=== PATIENT | male | born 1995 | race Caucasian/White ===

== ENCOUNTER 2022-07-20 08:55 | Emergency (ER) | payer SELFPAY ==
[2022-07-20 11:00] LABS: #Basophils 0.1 10x3/uL (0.0-0.2); #Eosinphils 0.3 10x3/uL (0.0-0.5); #Monocytes 1.4 10x3/uL (0.0-1.1); #Neutrophils 9.8 10x3/uL (1.5-8.4); %Basophils 0.8 % (0.0-2.0); %Eosinophils 2.4 % (0.0-6.0); %Lymphocytes 11.2 % (18.0-47.0); %Monocytes 10.4 % (0.0-10.0); %Neutrophils 74.5 % (40.0-75.0); Hemoglobin 12.4 g/dL (13.5-17.5); Mean Corpuscular HGB CONC 32.4 g/dL (32.0-36.0); Mean Corpuscular Hemoglobin 28.4 pg (27.0-33.0); Mean Corpuscular Volume 87.8 fl (81.2-95.1); Mean Platelet Volume 8.9 fl (7.4-10.4); Platelet Count 533 10x3/uL (150-450); RBC Distribution Width 14.8 % (11.5-14.5); Red Blood Cell (RBC) Count 4.36 10x6/uL (4.32-5.72); White Blood Cell (WBC) Count 13.1 10x3/uL (3.5-10.5)
[2022-07-20 11:14] LABS: ALT (SGPT) 80 U/L (8-55); AST (SGOT) 48 U/L (5-34); Albumin 3.5 g/dL (3.5-5.0); Alkaline Phosphatase 447 U/L (40-110); Anion Gap 11 mmol/L (10-20); BUN (Urea Nitrogen) 9 mg/dL (8.9-20.6); Bilirubin, Total 0.9 mg/dL (0.2-1.2); Calc. Creatinine Clearance 0 mL/min (70-130); Calcium 9.6 mg/dL (7.8-10.44); Carbon Dioxide 27 mmol/L (22-29); Chloride 99 mmol/L (98-107); Estimated GFR 124; Globulin 4.1 g/dL (2.4-3.5); Glucose 95 mg/dL (70-105); Potassium 4.2 mmol/L (3.5-5.1); Protein, Total 7.6 g/dL (6.0-8.3); Sodium 133 mmol/L (136-145)
[2022-07-20 11:33] LABS: HIV (1/2) Antibody/Antigen Non-Reactive (NonReactive); HIV 1/2 INDEX 0.11 S/CO (<1.00)
[2022-07-20 11:37] LABS: SARS-CoV-2 NAA Rapid Test DETECTED (NotDetected)
== END 2022-07-20 12:36 | disposition home or self-care (01) ==
LOC: CSHERS 08:55
DX: U07.1 COVID-19 (principal); Z87.891 Personal history of nicotine dependence
CPT/HCPCS: 36415; 71045; 80053; 83605; 84145; 85025; 87040; 87389; 90471; 96365; 96375

== ENCOUNTER 2023-04-24 08:21 | Emergency (ER) | payer SELFPAY ==
[2023-04-24] MEDS ORDERED: Lidocaine 1% (PF) 30 ML VIAL ONE (08:29)
[2023-04-24] MEDS ORDERED: Ketamine 50 MG/ML (10ML VIAL) ONE (08:29)
[2023-04-24] MEDS ORDERED: Ondansetron PF 4 MG/2 ML Vial ONE (08:32)
[2023-04-24] MEDS ORDERED: Morphine 4 MG/ML VIAL ONE (09:00)
[2023-04-24] MEDS ORDERED: cefTRIAXone (ROCEPHIN) 2 GM VIAL ONE (09:46)
[2023-04-24 10:08] LABS: #Basophils 0.1 10x3/uL (0.0-0.2); #Eosinphils 0.1 10x3/uL (0.0-0.5); #Monocytes 1.5 10x3/uL (0.0-1.1); #Neutrophils 15.9 10x3/uL (1.5-8.4); %Basophils 0.5 % (0.0-2.0); %Eosinophils 0.6 % (0.0-6.0); %Lymphocytes 5.1 % (18.0-47.0); %Monocytes 8.1 % (0.0-10.0); %Neutrophils 85.3 % (40.0-75.0); Hemoglobin 12.5 g/dL (13.5-17.5); Mean Corpuscular HGB CONC 32.2 g/dL (32.0-36.0); Mean Corpuscular Hemoglobin 28.6 pg (27.0-33.0); Mean Corpuscular Volume 88.8 fl (81.2-95.1); Mean Platelet Volume 9.1 fl (7.4-10.4); Platelet Count 573 10x3/uL (150-450); Red Blood Cell (RBC) Count 4.37 10x6/uL (4.32-5.72); White Blood Cell (WBC) Count 18.6 10x3/uL (3.5-10.5)
[2023-04-24 10:09] LABS: SARS-CoV-2 NAA Rapid Test Not Detected (NotDetected)
[2023-04-24 10:28] LABS: ALT (SGPT) 106 U/L (8-55); AST (SGOT) 84 U/L (5-34); Albumin 3.4 g/dL (3.5-5.0); Alkaline Phosphatase 450 U/L (40-110); Anion Gap 16 mmol/L (10-20); BUN (Urea Nitrogen) 12 mg/dL (8.9-20.6); Bilirubin, Total 0.7 mg/dL (0.2-1.2); Calc. Creatinine Clearance 0 mL/min (70-130); Carbon Dioxide 22 mmol/L (22-29); Chloride 102 mmol/L (98-107); Estimated GFR 127; Globulin 3.9 g/dL (2.4-3.5); Glucose 98 mg/dL (70-105); Potassium 4.4 mmol/L (3.5-5.1); Protein, Total 7.3 g/dL (6.0-8.3); Sodium 136 mmol/L (136-145)
== END 2023-04-24 10:38 | disposition short-term general hospital (02) ==
LOC: CSHERS 08:21
DX: J93.83 Other pneumothorax (principal); J18.9 Pneumonia, unspecified organism; D72.829 Elevated white blood cell count, unspecified; Z87.891 Personal history of nicotine dependence
CPT/HCPCS: 32551; 36415; 71045; 80053; 83605; 84484; 85025; 87040; 93005; 94760; 96374; 96375; J0696; J2001; J2270; J2405